=== PATIENT | female | born 1985 | race Caucasian/White ===

== ENCOUNTER 2016-09-17 22:25 | Emergency (ER) | payer OTHER ==
[~2016-09-17] VITALS: Ht 167.6 cm; Wt 60.8 kg
[2016-09-17] MEDS ORDERED: ACETAMINOPHEN500 MG PO (22:38)
[2016-09-17] MEDS ORDERED: GABAPENTIN100 MG PO (22:38)
[2016-09-17] MEDS ORDERED: HYDROMORPHONE HC2 MG PO (22:40)
[2016-09-17] MEDS ORDERED: SENNA-DOCUSATE1 EACH PO (22:41)
[2016-09-17] MEDS ORDERED: CRANBERRY500 MG PO (22:42)
[2016-09-17] MEDS ORDERED: OMEGA-31000 MG PO (22:42)
[2016-09-17] MEDS ORDERED: PROBIOTIC1 EAC5 PO (22:43)
[2016-09-17] MEDS ORDERED: VIIBRYD10 MG PO (22:44)
== END 2016-09-18 04:26 | disposition home or self-care (01) ==
LOC: ED 22:25
DX: R06.00 Dyspnea, unspecified (principal); F32.9 Major depressive disorder, single episode, unspecified; F41.9 Anxiety disorder, unspecified; Z93.6 Other artificial openings of urinary tract status; Z87.442 Personal history of urinary calculi; Z91.040 Latex allergy status; Z79.899 Other long term (current) drug therapy
CPT/HCPCS: 71020; 71260; 80053; 85025; 85379; 99284; Q9967